=== PATIENT | female | born 2000 | race Caucasian/White ===

== ENCOUNTER → 2024-07-27 | Outpatient (CLI) | payer BC ==
--- NOTE | 2024-07-27 10:34 | XR ---
EXAMINATION TYPE: XR chest 2V DATE OF EXAM: 07/27/2024 CLINICAL INDICATION: Female, 24 years old with history of J45.990 asthma, TECHNIQUE: Frontal and lateral views of the chest are obtained. COMPARISON: None FINDINGS: There is no focal air space opacity, pleural effusion, or pneumothorax seen. The cardiac silhouette size is within normal limits. The osseous structures are intact. IMPRESSION: No acute cardiopulmonary process. [facility], , 07/27/2024 10:32 AM
--- NOTE | 2024-07-27 10:36 | XR ---
EXAMINATION TYPE: XR KUB DATE OF EXAM: 07/27/2024 10:30 AM CLINICAL INDICATION: Female, 24 years old with history of R10.9 abd pressure, pain TECHNIQUE: 2 supine views of the abdomen. COMPARISON: None. FINDINGS: As seen in nondistended stomach. Scattered gas is seen in non-distended small bowel loops. Gas and fecal material is seen in non-distended colon. There is no visceromegaly or abnormal calcific ation appreciated. Spina bifida defect S1 level is seen. IMPRESSION: Overall nonobstructive bowel gas pattern. [facility], , 07/27/2024 10:34 AM
== END | disposition home or self-care (01) ==
LOC: RADXRMAIN 10:13
PROVIDERS: ATTEND Internal Medicine
DX: R10.9 Unspecified abdominal pain (principal); J45.990 Exercise induced bronchospasm; R14.0 Abdominal distension (gaseous)
CPT/HCPCS: 71046; 74018